=== PATIENT | male | born 1965 | race Caucasian/White ===

== ENCOUNTER 2017-08-04 13:39 | Emergency (ER) | payer MEDICAID ==
[~2017-08-04] VITALS: Ht 170.2 cm; Wt 75.0 kg
[~2017-08-04 13:39] MED LIST: AMLO10TA80 PO; ASPI-1159 PO; FURO20TA4 PO; INSULIN NPH SUBCUT; INSULIN REGULAR SUBCUT; LABE100T PO; LOSA100T14 PO; SIMV40TA5 PO
[2017-08-04] MEDS ORDERED: LORAZEPAM 0.5MG TABLET PO ONE (14:00)
[2017-08-04 14:14] VITALS: BP 161/82
[2017-08-04] MEDS ORDERED: CLONIDINE 0.1MG TABLET PO ONE (14:15)
== END 2017-08-04 14:53 | disposition home or self-care (01) ==
LOC: ER 13:39
DX: F41.0 Panic disorder [episodic paroxysmal anxiety] (principal); I11.0 Hypertensive heart disease with heart failure; I50.9 Heart failure, unspecified; E11.9 Type 2 diabetes mellitus without complications; E78.00 Pure hypercholesterolemia, unspecified; Z79.4 Long term (current) use of insulin; Z79.82 Long term (current) use of aspirin; Z79.899 Other long term (current) drug therapy
CPT/HCPCS: 99284